=== PATIENT | male | born 1960 | race Caucasian/White ===

== ENCOUNTER 2016-05-26 16:13 | Emergency (ER) | payer OTHER ==
[~2016-05-26] VITALS: Ht 180.3 cm; Wt 145.0 kg
[2016-05-26 16:16] VITALS: BP 162/97; PULSE 84; RESP 20; TEMP 97.5; O2SAT 97
--- NOTE | 2016-05-26 17:15 | PD ---
HPI Chief Complaint: Pain: Acute or Chronic Time Seen by Provider: 17:15 Travel History International Travel<30 days: No Contact w/Intl Traveler<30days: No Traveled to known affect area: No History of Present Illness HPI 55-year-old male presents to the emergency Department with complaint of a swollen and painful left lower leg. He noticed the pain and swelling started last night with worsening today. He called his primary care doctor [place], where [place] lives, and he was told to come to the emergency room for evaluation of blood clot. He did travel down to [place] about a week and a half to 2 weeks ago 15 hours by vehicle. He then took a trip down to [place] recently and back up to [facility] for total about 16 hours. He denies history of DVT or PE. Denies paresthesias, loss of sensation, decreased range of motion, decreased strength to the affected extremity. Pain is worse with walking. Reports left leg edema compared to the right leg. Denies recent hospitalization, trauma, surgery. Denies anticoagulants. He tried taking [id number] Tylenol with no relief of symptoms. Denies fever, chills, nausea, vomiting. Denies chest pain, shortness of breath, abdominal pain, nausea, vomiting. Denies significant past medical history. Has had history of gastric bypass. Takes vitamin B12. Primary care provider is [facility]. No known allergies. No other modifying factors or associated signs and symptoms. PFSH Social History Tobacco Use: No Allergies-Medications (Allergen,Severity, Reaction): Coded Allergies: No Known Allergies (Unverified , 05/26/16) Reported Meds & Prescriptions Reported Meds & Active Scripts Active Percocet (Oxycodone-Acetaminophen) 5-325 mg Tab 1-2 Tab PO Q4-6H PRN Percocet (Oxycodone-Acetaminophen) 2.5-325 mg Tab 1-2 Tab PO Q4-6H PRN Xarelto (Rivaroxaban) 20 Mg Tab 20 Mg PO DAILY 30 Days Xarelto (Rivaroxaban) 15 Mg Tab 15 Mg PO Q12HR 21 Days Reported Multiple Vitamin 1 Tab 1 Tab PO DAILY Review of Systems Except as stated in HPI: all other systems reviewed are Neg Physical Exam Narrative GENERAL: Well-nourished, well-developed male patient, in no acute distress; afebrile, nontoxic-appearing SKIN: Warm and dry. HEAD: Atraumatic. Normocephalic. EYES: Pupils equal and round. No scleral icterus. No injection or drainage. ENT: Mucosa pink and moist. Airway patent. NECK: Trachea midline. CARDIOVASCULAR: Regular rate and rhythm. No murmur appreciated. RESPIRATORY: No accessory muscle use. Clear and equal to auscultation bilaterally. GASTROINTESTINAL: Abdomen soft, non-tender, nondistended. Bowel sounds active 4 quadrants. MUSCULOSKELETAL: Left lower extremity is edematous, mildy erythematous, and tense with 2+ pedal pulse and sensory intact. Reproducible tenderness on palpation to the posterior upper calf. No obvious deformities. No clubbing. No cyanosis. No edema. NEUROLOGICAL: Awake and alert. Oriented 3. No obvious cranial nerve deficits. Motor grossly within normal limits. Normal speech. PSYCHIATRIC: Appropriate mood and affect; insight and judgment normal. Data Data Last Documented VS Vital Signs Date Time Temp Pulse Resp B/P Pulse Ox O2 Delivery O2 Flow Rate FiO2 05/26/16 16:16 97.5 84 20 162/97 97 Room Air Orders Us Leg Venous Doppler (05/26/16 ) Ketorolac Inj (Toradol Inj) (05/26/16 17:30) Stocking, Jonathan Thigh Lg Lng Pr (05/26/16 18:27) Rivaroxaban (Xarelto) (05/26/16 18:30) MDM Medical Decision Making Medical Screen Exam Complete: Yes ( ) Emergency Medical Condition: Yes Medical Record Reviewed: Yes Differential Diagnosis DVT, superficial thrombosis, cellulitis Narrative Course 55-year-old male with left lower extremity edema, erythema. The left lower extremity is tense and mildly erythematous with 2+ pedal pulse and sensory intact; without cyanosis. Toradol administered. Leg elevated. Left leg venous Doppler ultrasound ordered. 1807: Leg venous ultrasound concludes extensive DVT of the left lower extremity. Callout to vascular placed. 1824: I spoke with Dr. Fontaine, vascular surgeoun, and he agreed the patient is stable for discharge with strict discharge instructions: elevate leg, wear compression stocking, take anticoagulant as prescribed, return with worsening of symptoms, follow-up closely with PCP. I discussed discharge instructions with the patient and he verbalized understanding and agreement. Compression stocking ordered and applied prior to discharge. First dose of Xarelto administered in the ER. Xarelto and Percocet prescribed for home. Instructed patient to follow up with hematology and vascular surgeon. Patient verbalizes understanding and agreement with treatment plan. Patient is medically cleared and stable for discharge. Discussed reasons to return to the emergency department. Instructed patient to follow up with primary care provider. Patient agrees with treatment plan. The patients vital signs are stable and the patient is stable for outpatient follow-up and treatment. Patient discharged home, stable and in no acute distress. Diagnosis Primary Impression: Deep vein thrombosis (DVT) of left lower extremity Qualified Code: I82.412 - Deep vein thrombosis (DVT) of femoral vein of left lower extremity, unspecified chronicity Referrals: Primary Care Physician Vascular Surgeon Patient Instructions: Deep Venous Thrombosis (ED), General Instructions Additional Instructions: Take Xarelto as prescribed Thigh-high compression stocking to affected extremity Elevate the affected extremity as often as possible Tylenol as directed and as needed for pain and inflammation Avoid NSAIDs while on blood thinners Follow-up with hematology Follow-up with vascular surgeon Follow-up with primary care provider Return to the emergency department immediately with worsening of symptoms, particularly as discussed Med/Other Pt SpecificInfo: Prescription(s) given Scripts Oxycodone-Acetaminophen (Percocet)5-325 mg Tab1-2 Tab PO Q4-6H PRN (PAIN) #20 TAB Ref 0 Prov:Jules Richardson MD 05/26/16 Rivaroxaban (Xarelto)20 Mg Tab20 Mg PO DAILY 30 Days Ref 0 Prov:Lucille Gibbs 05/26/16 Rivaroxaban (Xarelto)15 Mg Tab15 Mg PO Q12HR 21 Days Ref 0 Prov:Lucille Gibbs 05/26/16 Disposition: 01 DISCHARGE HOME Condition: Stable Lucille Gibbs May 26, 2016 17:15
[2016-05-26] MEDS ORDERED: MULTTAB67 PO (17:17)
[2016-05-26] MEDS ORDERED: KETOROLAC TROMETHAMINE 60 MG/2 ML (IM) VIAL IM ONE (17:30)
--- NOTE | 2016-05-26 18:02 | RADRPT ---
EXAM DATE/TIME: 05/26/2016 17:38 [facility] COMPARISON: No previous studies available for comparison. INDICATIONS : Left leg pain. MEDICAL HISTORY : Left leg pain. SURGICAL HISTORY : No known previous surgical history. ENCOUNTER: Initial ACUITY: 2 day PAIN SCORE: 5/10 LOCATION: Left leg. TECHNIQUE: Venous ultrasound of the leg was performed from the inguinal ligament to the proximal calf. Real-angelia e, color Doppler and spectral tracing, compression and augmentation techniques were used. FINDINGS: Common femoral vein is patent. Thrombus is seen beginning in the proximal superficial femoral vein an d extending distally into the popliteal vein and below the knee into the peritoneal and posterior tib ial veins. Most of the clot is occlusive, especially distally. CONCLUSION: Extensive DVT of the left lower extremity. Winston Vazquez MD on May 26, 2016 at 17:59 Board Certified Radiologist. This report was verified electronically.
[2016-05-26] MEDS ORDERED: RIVAROXABAN 15 MG TAB PO ONE (18:30)
[2016-05-26] MEDS ORDERED: XARE15TA PO (18:41)
[2016-05-26] MEDS ORDERED: XARE20TA PO (18:41)
[2016-05-26] MEDS ORDERED: PERC2.5T PO (18:45)
[2016-05-26] MEDS ORDERED: PERC5TAB12 PO ×2 (18:47→18:51)
== END 2016-05-26 19:56 | disposition home or self-care (01) ==
LOC: NEPB 16:13
DX: I82.412 Acute embolism and thrombosis of left femoral vein (principal); R60.0 Localized edema; Z98.84 Bariatric surgery status; Z79.899 Other long term (current) drug therapy
CPT/HCPCS: 93971; 96372; 99283; J1885